=== PATIENT | male | born 1975 | race Caucasian/White ===

== ENCOUNTER 2019-02-08 01:34 | Emergency (ER) | payer OTHER ==
[2019-02-08] MEDS ORDERED: Sodium Chloride 0.9% 1,000 ML IV ONE ×2 (01:55→02:41)
[2019-02-08 02:11] LABS: CHLORIDE,CL 102 mmol/L (98-107); SODIUM,NA 144 mmol/L (136-145)
[2019-02-08] MEDS ORDERED: Folic Acid 1 MG Tab PO ONE (02:19)
[2019-02-08] MEDS ORDERED: Cyanocobalamin (Vitamin B12) 1,000 MCG/ML SDV IM ONE (02:29)
[2019-02-08] MEDS ORDERED: Thiamine 100 MG in Sodium Chloride 0.9% 100 ML IV ONE (02:36)
[2019-02-08] MEDS ORDERED: D5 1/2 NS w/ 40 mEq/L KCl 1,000 ML IV SCH (02:45)
--- NOTE | 2019-02-08 02:45 | EDM.PDOC ---
ED HPI GENERAL MEDICAL PROBLEM - General Chief Complaint: General Stated Complaint: unresponsive Time Seen by Provider: 02/08/19 02:01 Source of Information: Reports: Patient, EMS, Police History Limitations: Reports: Altered Mental Status (Intoxication) - History of Present Illness INITIAL COMMENTS - FREE TEXT/NARRATIVE: Patient brought to ER by EMS due to repeatedly passing out at home. Per EMS/ Police everyone at the address was intoxicated. No additional information given. No report of other drug use. Patient has been seen here before for ETOH related issues. - Related Data Allergies Allergy/AdvReac Type Severity Reaction Status Date / Time No Known Allergies Allergy Verified 11/24/18 17:50 Home Meds: Home Meds Aspirin 81 mg PO DAILY 11/24/18 [History] Lisinopril 10 mg PO DAILY 11/24/18 [History] Nitroglycerin [Nitrostat] 0.4 mg SL ASDIRECTED PRN 11/24/18 [History] Omeprazole 20 mg PO DAILY 11/24/18 [History] amLODIPine Besylate [Amlodipine Besylate] 10 mg PO DAILY 11/24/18 [History] atorvaSTATin Calcium [Atorvastatin Calcium] 20 mg PO DAILY 11/24/18 [History] hydroCHLOROthiazide [Hydrochlorothiazide] 25 mg PO DAILY 11/24/18 [History] Past Medical History - Past Health History Medical/Surgical History: Denies Medical/Surgical History Cardiovascular History: Reports: CAD, High Cholesterol, Hypertension Psychiatric History: Reports: Addiction (ETOH abuse) - Past Surgical History GI Surgical History: Reports: Bariatric Procedure - History Comment History Comment: 2016: Unable in to get history given patient's current clinical condition and his is currently very intoxicated as well and unable to answer questions reliably. 2018: Unable to get history given patient' s current clinical condition. No one accompanied patient to ER. Per EMS report is at home and is also very intoxicated. Social & Family History - Caffeine Use Caffeine Use: Reports: Coffee - Alcohol Use Alcohol Use History: Yes Date/Time of Last Drink Comment: Unable to obtain information as to how much/ how often patient uses ETOH Alcohol Use in Last Twelve Months: Yes Alcohol Use Comment: Suspect dependence in addition to pattern of abuse/acute significant intoxication - Recreational Drug Use Recreational Drug Use: Yes Drug Use in Last 12 Months: Yes Recreational Drug Type: Reports: Marijuana/Hashish, Methamphetamine - Living Situation & Occupation Living situation: Reports: ED ROS GENERAL - Review of Systems Review Of Systems: Unable To Obtain ED EXAM, GENERAL - Physical Exam Exam: See Below Exam Limited By: Other (sleeping) General Appearance: No Apparent Distress Eye Exam: Bilateral Eye: PERRL Nose: No: Nasal Deformity, Nasal Swelling, Nasal Drainage Throat/Mouth: No Airway Compromise Head: Atraumatic, Normocephalic Neck: Supple Respiratory/Chest: No Respiratory Distress, Lungs Clear, Normal Breath Sounds, No Accessory Muscle Use Cardiovascular: Regular Rate, Rhythm, No Murmur Peripheral Pulses: 2+: Radial (L), Radial (R) GI/Abdominal: Normal Bowel Sounds, Soft, Non-Tender, No Distention (Male) Exam: Deferred Rectal (Males) Exam: Deferred Neurological: Other (sleeping) Skin Exam: Warm, Dry, Normal Color EKG INTERPRETATION EKG Date: 02/08/19 Time: 01:38 Rhythm: NSR Rate (Beats/Min): 88 [place]: Normal P-Wave: Present QRS: Other (increased voltage noted lateral leads suggestive of LVH) ST-T: Normal QT: Normal Course - Vital Signs Last Recorded V/S: Last Vital Signs Temp 36.6 C 02/08/19 02:02 Pulse 79 02/08/19 06:03 Resp 16 02/08/19 06:03 BP 124/61 02/08/19 06:03 Pulse Ox 100 02/08/19 06:03 - Orders/Labs/Meds Orders: Active Orders 24 hr Category Date Time Status EKG Documentation Completion [RC] ASDIRECTED Care 02/08/19 01:56 Active DRUG SCREEN, URINE [URCHEM] Stat Lab 02/08/19 02:02 Ordered UA W/MICROSCOPIC [URIN] Stat Lab 02/08/19 02:02 Ordered Labs: Laboratory Tests 02/08/19 02/08/19 02/08/19 Range/Units 01:35 01:35 08:00 WBC 10.2 (4.0-10.2) K/uL RBC 4.07 L (4.33-5.41) M/uL Hgb 12.7 L (13.1-16.8) g/dL Hct 37.0 L (39.0-49.0) % MCV 90.9 (84.0-98.0) fL MCH 31.2 (28.2-33.3) pg MCHC 34.3 (31.7-36.0) g/dL RDW 19.3 H (11.2-14.1) % Plt Count 408 H (150-350) K/uL Neut % (Auto) 37.9 L (45.0-80.0) % Lymph % (Auto) 52.6 H (10.0-50.0) % [place] % (Auto) 7.2 (2.0-14.0) % Eos % (Auto) 0.9 (0.0-5.0) % Baso % (Auto) 1.4 (0.0-2.0) % Neut # (Auto) 3.88 (1.40-7.00) K/uL Lymph # (Auto) 5.38 H (0.50-3.50) K/uL [place] # (Auto) 0.74 (0.00-1.00) K/uL Eos # (Auto) 0.09 (0.00-0.50) K/uL Baso # (Auto) 0.14 (0.00-0.20) K/uL Sodium 144 (136-145) mmol/L Potassium 3.0 L 4.4 (3.5-5.1) mmol/L Chloride 102 (98-107) mmol/L Carbon Dioxide 27.4 (21.0-32.0) mmol/L BUN 12 (7-18) mg/dL Creatinine 0.77 (0.51-1.17) mg/dL Est Cr Clr Drug Dosing TNP Estimated GFR (MDRD) > 60 mL/min Glucose 124 H (74-106) mg/dL Calcium 8.5 (8.5-10.1) mg/dL Total Bilirubin 0.2 (0.2-1.0) mg/dL AST 25 (15-37) U/L ALT 29 (12-78) U/L Alkaline Phosphatase 64 (46-116) IU/L Total Protein 7.5 (6.4-8.2) g/dL Albumin 4.2 (3.4-5.0) g/dL Ethyl Alcohol 0.295 H (0.000-0.080) g/dL 02/08/19 Range/Units 08:00 WBC (4.0-10.2) K/uL RBC (4.33-5.41) M/uL Hgb (13.1-16.8) g/dL Hct (39.0-49.0) % MCV (84.0-98.0) fL MCH (28.2-33.3) pg MCHC (31.7-36.0) g/dL RDW (11.2-14.1) % Plt Count (150-350) K/uL Neut % (Auto) (45.0-80.0) % Lymph % (Auto) (10.0-50.0) % [place] % (Auto) (2.0-14.0) % Eos % (Auto) (0.0-5.0) % Baso % (Auto) (0.0-2.0) % Neut # (Auto) (1.40-7.00) K/uL Lymph # (Auto) (0.50-3.50) K/uL [place] # (Auto) (0.00-1.00) K/uL Eos # (Auto) (0.00-0.50) K/uL Baso # (Auto) (0.00-0.20) K/uL Sodium (136-145) mmol/L Potassium (3.5-5.1) mmol/L Chloride (98-107) mmol/L Carbon Dioxide (21.0-32.0) mmol/L BUN (7-18) mg/dL Creatinine (0.51-1.17) mg/dL Est Cr Clr Drug Dosing Estimated GFR (MDRD) mL/min Glucose (74-106) mg/dL Calcium (8.5-10.1) mg/dL Total Bilirubin (0.2-1.0) mg/dL AST (15-37) U/L ALT (12-78) U/L Alkaline Phosphatase (46-116) IU/L Total Protein (6.4-8.2) g/dL Albumin (3.4-5.0) g/dL Ethyl Alcohol 0.167 H (0.000-0.080) g/dL Meds: Medications Discontinued Medications Generic Name Dose Route Start Last Admin Trade Name Freq PRN Reason Stop Dose Admin Cyanocobalamin 1,000 mcg 02/08/19 02:29 02/08/19 02:59 Vitamin B12 IM 02/08/19 02:30 1,000 mcg ONETIME ONE Administration Folic Acid 1 mg 02/08/19 02:19 02/08/19 05:53 Folic Acid PO 02/08/19 02:20 1 mg ONETIME ONE Administration Folic Acid Confirm 02/08/19 05:53 Folic Acid Administered 02/08/19 05:54 Dose 1 mg .ROUTE .STK-MED ONE Sodium Chloride 1,000 mls @ 999 mls/hr 02/08/19 01:55 02/08/19 02:07 Normal Saline IV 02/08/19 02:55 999 mls/hr .BOLUS ONE Administration Thiamine HCl 100 mg/ Sodium 101 mls @ 202 mls/hr 02/08/19 02:36 02/08/19 03: 01 Chloride IV 02/08/19 02:37 202 mls/hr ONETIME ONE Administration Potassium Chloride/Dextrose/Sod Cl 1,000 mls @ 50 mls/hr 02/08/19 02:45 D5 1/2 Ns W/ 40 Meq/L Kcl IV ASDIRECTED LATANYA Sodium Chloride 1,000 mls @ 250 mls/hr 02/08/19 02:41 02/08/19 02:59 Normal Saline IV 02/08/19 06:40 250 mls/hr .BOLUS ONE Administration Potassium Chloride 10 meq/ 50 mls @ 50 mls/hr 02/08/19 02:45 02/08/19 05:48 Premix IV 02/08/19 05:44 50 mls/hr Q1H LATANYA Administration Potassium Chloride 40 meq 02/08/19 08:00 Klor-Con M20 PO 02/08/19 08:01 ONETIME ONE Potassium Chloride 40 meq 02/08/19 06:00 02/08/19 05:48 Klor-Con M20 PO 02/08/19 06:01 40 meq ONETIME ONE Administration - Re-Assessments/Exams Free Text/Narrative Re-Assessment/Exam: 02/08/19 02:48 ETOH level .295 Potassium low at 3.0 Mild decrease HGB, increased platelets. Patient received IV bolus of NS. Will given additional NS plus 3 bags of K. Recheck of potassium in the morning. IV thiamine/IM B12/PO folic acid ordered. Free Text/Narrative Re-Assessment/Exam: 02/08/19 10:53 Patient's blood ETOH improved significantly and was 0.167 when rechecked around 8am. Potassium normalized. Patient observed to ambulate several times to bathroom. Alert, appropriate interaction with staff. He admitted to drinking too much last night. He wished to go home. Concern for ETOH dependence based on history. Information regarding ETOH dependence/abuse given at time of discharge. Recommended patient visit with CD counselor for better evaluation of ETOH use. Departure - Departure Time of Disposition: 09:12 Disposition: Home, Self-Care 01 Clinical Impression: Alcohol abuse, Intoxication, Hypokalemia - Discharge Information *PRESCRIPTION DRUG MONITORING PROGRAM REVIEWED*: Not Applicable *COPY OF PRESCRIPTION DRUG MONITORING REPORT IN PATIENT ILEANA: Not Applicable Instructions: What You Need to Know About Alcohol Abuse and Dependence, Adult Referrals: Lisa Evans PA-C [Primary Care Provider] - Forms: ED Department Discharge Additional Instructions: Take it easy today. Stay hydrated (drink water) Take a close look at your relationship with alcohol. Your level was significantly elevated tonight, which in turn reflects that you have developed a tolerance to alcohol. Tolerance results from chronic and frequent use. We recommend visiting with a chemical dependency counselor if you are interested in making a change. They can help assess your use and make suggestions as to strategies to treat alcohol dependence/abuse. Follow up otherwise as needed if you have problems. You did receive supplemental potassium during your stay as you were low. Low potassium can be dangerous. You also were given Folic Acid/B12/Thiamine as chronic alcohol use causes nutritional deficiencies in these frequently. - My Orders Last 24 Hours: My Active Orders 02/08/19 01:56 EKG Documentation Completion [RC] ASDIRECTED 02/08/19 02:02 DRUG SCREEN, URINE [URCHEM] Stat UA W/MICROSCOPIC [URIN] Stat - Assessment/Plan Last 24 Hours: My Active Orders 02/08/19 01:56 EKG Documentation Completion [RC] ASDIRECTED 02/08/19 02:02 DRUG SCREEN, URINE [URCHEM] Stat UA W/MICROSCOPIC [URIN] Stat
[2019-02-08] MEDS: Potassium Chloride 10 MEQ in Premix Bag 1 BAG IV SCH ×3 (02:58→05:48)
[2019-02-08] MEDS ORDERED: Folic Acid 1 MG Tab ONE (05:53)
[2019-02-08] MEDS ORDERED: Potassium Chloride 20 MEQ Tab.ER PO ONE ×2 (06:00→08:00)
[2019-02-08 11:59] VITALS: BP 118/53
== END 2019-02-08 09:36 | disposition home or self-care (01) ==
LOC: LL.ED 01:34
DX: F10.129 Alcohol abuse with intoxication, unspecified (principal); E87.6 Hypokalemia; E78.00 Pure hypercholesterolemia, unspecified; I10 Essential (primary) hypertension; I25.10 Atherosclerotic heart disease of native coronary artery without angina pectoris; Z79.82 Long term (current) use of aspirin; Z79.899 Other long term (current) drug therapy; Y90.8 Blood alcohol level of 240 mg/100 ml or more
CPT/HCPCS: 36415; 80053; 84132; 85025; 93005; 96361; 96365; 96366; 96367; 96372; 99284-25; A9270-GY; G0480; J3411; J3420; J3480; J7030; J7050